=== PATIENT | male | born 1990 | race African-American/Black ===

== ENCOUNTER 2017-06-28 17:40 | Emergency (ER) | payer OTHER ==
[~2017-06-28] VITALS: Ht 185.4 cm; Wt 68.0 kg
== END 2017-06-28 18:50 | disposition home or self-care (01) ==
LOC: CFTX 17:40 → CED 17:40 → CFTX 18:36
DX: S13.4XXA Sprain of ligaments of cervical spine, initial encounter (principal); S33.5XXA Sprain of ligaments of lumbar spine, initial encounter; V49.50XA Passenger injured in collision with unspecified motor vehicles in traffic accident, initial encounter; Y92.410 Unspecified street and highway as the place of occurrence of the external cause
CPT/HCPCS: 96372; 99283; J1885